=== PATIENT | female | born 1955 | race Caucasian/White ===

== ENCOUNTER 2017-08-05 09:52 | Inpatient (IN) | payer BC ==
[~2017-08-05] VITALS: Ht 162.6 cm; Wt 79.6 kg
[2017-08-05] MEDS ORDERED: ATEN-104 PO (13:49)
[2017-08-05] MEDS ORDERED: CHOL40002 PO (13:49)
[2017-08-05] MEDS ORDERED: VERA120T5 PO (13:49)
[2017-08-05] MEDS ORDERED: HYDR25TA6 PO (13:49)
[2017-08-05] MEDS ORDERED: ASPI-515 PO (13:49)
[2017-08-05] MEDS ORDERED: ENAL20TA PO (13:49)
[2017-08-05 13:55] LABS: BASOPHILS # (AUTO) 0.05 x10^3/uL (0-0.1); BASOPHILS % (AUTO) 1 % (0-1); EOSINOPHILS # (AUTO) 0.21 x10^3/uL (0-0.4); EOSINOPHILS % (AUTO) 2 % (1-7); LYMPHOCYTES # (AUTO) 3.13 x10^3/uL (1-3.4); LYMPHOCYTES % (AUTO) 36 % (22-44); MD NO; MEAN CORPUSCULAR HEMOGLOBIN 31.4 pg (27.0-34.8); MEAN CORPUSCULAR HGB CONC 34.2 g/dL (32.4-35.8); MEAN CORPUSCULAR VOLUME 91.9 fL (80-100); MEAN PLATELET VOLUME 8.6 fL (7.4-10.4); MONOCYTES # (AUTO) 0.71 x10^3/uL (0.2-0.8); MONOCYTES % (AUTO) 8 % (2-9); NEUTROPHILS # (AUTO) 4.69 x10^3/uL (1.8-6.8); NEUTROPHILS % (AUTO) 53 % (42-75); PLATELET COUNT 351 x10^3/uL (130-400); RED BLOOD COUNT 4.51 x10^6/uL (3.82-5.3); RED CELL DISTRIBUTION WIDTH 12.7 % (9.6-15.2)
[2017-08-05 13:57] LABS: INTERNATIONAL NORMALIZED RATIO 0.97 (0.93-1.1)
[2017-08-05 14:00] LABS: ANION GAP 6 mmol/L (5-15); CALCIUM 9.4 mg/dL (8.5-10.1); CHLORIDE 105 mmol/L (98-107); CREATININE 0.94 mg/dL (0.55-1.02)
[2017-08-05] MEDS ORDERED: POLYETHYLENE GLYCOL 17 GM PACKET PO PRN (16:00)
[2017-08-05] MEDS ORDERED: ENALAPRILAT 1.25 MG/ML, 2ML IVPush PRN (16:00)
[2017-08-05] MEDS ORDERED: DOCUSATE 100 MG CAPSULE PO PRN (16:00)
[2017-08-05] MEDS ORDERED: hydrALAzine 20 MG/ML, 1ML IVPush PRN (16:00)
[2017-08-05] MEDS ORDERED: ONDANSETRON ODT 4 MG PO PRN (16:00)
[2017-08-05] MEDS ORDERED: ACETAMINOPHEN 325 MG TABLET PO PRN (16:00)
[2017-08-05] MEDS ORDERED: BISACODYL 10 MG SUPP PR PRN (16:00)
[2017-08-05 16:16] VITALS: BP 157/84
[2017-08-05 18:44] VITALS: BP 133/85
[2017-08-05] MEDS ORDERED: HYDROCHLOROTHIAZIDE 25 MG TABLET PO SCH (21:00)
[2017-08-05] MEDS ORDERED: VERAPAMIL 120MG TABLET PO SCH (21:00)
[2017-08-05] MEDS: ATENOLOL 50 MG TABLET PO SCH (22:07)
[2017-08-05] MEDS: ENALAPRIL 20MG TABLET PO SCH (22:07)
[2017-08-06 02:00] VITALS: BP 125/85
[2017-08-06] MEDS: ASPIRIN 325 MG TABLET EC PO SCH (06:08)
[2017-08-06 06:14] LABS: CHOL/HDL RATIO 4.3; LDL/HDL RATIO 2.5 (0.5-3.0); THYROID STIMULATING HORMONE 1.69 mIU/L (0.358-3.740)
[2017-08-06] MEDS: ENALAPRIL 20MG TABLET PO SCH ×2 (08:15→20:12)
[2017-08-06] MEDS: CHOLECALCIFEROL 1,000 UNIT TABLET PO SCH (08:15)
[2017-08-06] MEDS: HYDROCHLOROTHIAZIDE 25 MG TABLET PO SCH (08:15)
[2017-08-06] MEDS: ATENOLOL 50 MG TABLET PO SCH ×2 (08:15→20:12)
[2017-08-06 08:37] VITALS: BP 121/85
[2017-08-06] MEDS ORDERED: GADOBUTROL 10 MMOL/10 ML PFS ONE (09:10)
[2017-08-06 13:40] VITALS: BP 117/80
[2017-08-06] MEDS ORDERED: MECLIZINE CHEWABLE 25 MG TAB PO PRN (14:30)
[2017-08-06 18:17] VITALS: BP 135/84
[2017-08-06] MEDS ORDERED: VERAPAMIL ER 180MG TABLET.ER PO SCH (21:00)
[2017-08-07 02:20] VITALS: BP 108/68
[2017-08-07] MEDS: ASPIRIN 325 MG TABLET EC PO SCH (05:41)
[2017-08-07 07:35] VITALS: BP 114/68
[2017-08-07] MEDS: CHOLECALCIFEROL 1,000 UNIT TABLET PO SCH (10:28)
[2017-08-07] MEDS: HYDROCHLOROTHIAZIDE 25 MG TABLET PO SCH (10:29)
[2017-08-07] MEDS: ENALAPRIL 20MG TABLET PO SCH (10:29)
[2017-08-07] MEDS: ATENOLOL 50 MG TABLET PO SCH (10:29)
[2017-08-07] MEDS ORDERED: GADOBUTROL 10 MMOL/10 ML VIAL ONE (10:44)
[2017-08-07 13:50] VITALS: BP 114/66
[2017-08-07] MEDS ORDERED: OMEG1CAP23 PO (14:23)
[2017-08-07] MEDS ORDERED: ASPI-515 PO (14:23)
== END 2017-08-07 15:57 | disposition home or self-care (01) | DRG 66 ==
LOC: ED 13:37 → EDIP 13:38 → ED 13:41 → 4EST 16:09
PROVIDERS: ADMIT Hospitalist; ATTEND Hospitalist
DX: I63.9 Cerebral infarction, unspecified (principal); I10 Essential (primary) hypertension; E78.5 Hyperlipidemia, unspecified; G20 Parkinson's disease; I45.6 Pre-excitation syndrome; H54.7 Unspecified visual loss; Z82.49 Family history of ischemic heart disease and other diseases of the circulatory system; Z79.82 Long term (current) use of aspirin; Z87.891 Personal history of nicotine dependence; Z83.3 Family history of diabetes mellitus; I25.2 Old myocardial infarction; Z88.1 Allergy status to other antibiotic agents
CPT/HCPCS: 36415; 70544; 70548; 70553; 80048; 80061; 84443; 85025; 85610; 93005; 93306; 93880; 99285; A9585

== ENCOUNTER → 2018-01-26 | Outpatient (CLI) | payer OTHER ==
[~2018-01-26] MED LIST: ASPI-515 PO; ATEN-104 PO; CHOL40002 PO; ENAL20TA PO; HYDR25TA6 PO; OMEG1CAP23 PO; REGADENOSON 0.4 MG/5 ML SYRINGE ONE; VERA120T5 PO
== END | disposition home or self-care (01) ==
LOC: CFH 12:01
PROVIDERS: ATTEND Physician Assistant Medical
DX: R07.9 Chest pain, unspecified (principal); R06.00 Dyspnea, unspecified; R06.02 Shortness of breath
CPT/HCPCS: 78452; 93017; A9502; J2785